=== PATIENT | female | born 1970 | race Caucasian/White ===

== ENCOUNTER 2019-05-22 15:48 | Emergency (ER) | payer OTHER ==
--- NOTE | 2019-05-22 15:50 | PDOC ---
History of Present Illness - General Chief Complaint: Revisit, Lab Variance Stated Complaint: HIGH POTASSIUM Time Seen by Provider: 05/22/19 15:50 Past History - Past Medical History Allergies/Adverse Reactions: Allergies Allergy/AdvReac Type Severity Reaction Status Date / Time Penicillins Allergy Verified 05/22/19 15:49 Discharge - Discharge Information Condition: Stable - Follow up/Referral - Patient Discharge Instructions - Post Discharge Activity
[2019-05-22 15:53] VITALS: BMI 27.4
--- NOTE | 2019-05-22 16:00 | PDOC ---
Attending Attestation - Resident Resident Name: Neftali Bruce - ED Attending Attestation I have performed the following: I have examined & evaluated the patient, The case was reviewed & discussed with the resident, I agree w/resident's findings & plan, Exceptions are as noted - HPI HPI: 05/23/19 08:33 Patient presents at the request of her siding mechanic, who performed routine labs this morning and noted a potassium of 7.0. The patient is asymptomatic. There's been no vomiting or diarrhea. She has no known kidney disease or prior electrolyte abnormalities - Physicial Exam PE: 05/23/19 08:33 Physical exam: Alert and oriented well-developed well-nourished no acute distress cheerful and cooperative Afebrile, vital signs normal including regular heart rate HEENT clear Neck supple without bruit mass or nodes Chest clear bilaterally CV S1 and S2 normal without murmur or gallop pulses full and symmetric no JVD or edema no bruits Abdomen benign Neurological intact including 2+ reflexes bilateral, symmetric Extremities no CCE Skin clear, no rash, adequate turgor and wet mucous membranes Impression: Hyperkalemia on routine blood work, no obvious reason for elevated potassium, possible homolysis original specimen Plan: Repeat potassium revealed a value of 4.0. Remaining labs were normal. Patient was reassured and instructed to follow-up with primary physician, or return to ER if any symptoms develop. Fully ambulatory and in no distress at discharge - Medical Decision Making 05/23/19 08:35 Assessment and plan as noted above
[2019-05-22 17:07] VITALS: BP 110/64; PULSE 87; TEMP 98.4
[2019-05-22 17:09] LABS: BASO % 0.6 % (0-2.0); EOS % 4.4 % (0-4.5); HEMATOCRIT 35.1 % (32.4-45.2); HEMOGLOBIN 11.9 GM/dl (10.7-15.3); LYMPH % 26.9 % (8-40); MCHC 33.9 g/dl (32.0-36.0); MEAN CELL VOLUME 97.2 fl (80-96); MEAN PLT VOLUME 10.5 fl (7.5-11.1); MONO % 5.4 % (3.8-10.2); NEUT % 62.7 % (42.8-82.8); PLATELET COUNT 170 K/MM3 (134-434); RBC 3.61 M/mm3 (3.60-5.2); RDW 13.2 % (11.6-15.6); WHITE BLOOD COUNT 7.4 K/mm3 (4.0-10.8)
[2019-05-22 17:23] LABS: ALBUMIN 3.8 g/dl (3.4-5.0); BILIRUBIN,TOTAL 0.5 mg/dl (0.2-1); CALCIUM 8.5 mg/dl (8.5-10); CREATININE 0.6 mg/dl (0.55-1.3); TOT PROT 6.1 g/dl (6.4-8.2)
[2019-05-22 17:24] LABS: MAGNESIUM 1.9 mg/dL (1.8-2.4); PHOSPHOROUS 3.3 mg/dl (2.5-4.9)
--- NOTE | 2019-05-22 17:38 | PDOC ---
History of Present Illness - General History Source: Patient Exam Limitations: No Limitations - History of Present Illness Initial Comments: HPI: 48 y/o female presenting to [facility] for elevated potassium noted on routine outpatient labs ordered by pts real estate assistant. Lab was drawn this morning. Pt was called and told her potassium was 7.0 and she should present to the ED. Pt has no active complaints. Review of Systems: In addition to that documented in the HPI above, the additional ROS was obtained : Constitutional: Denies fevers or chills ENMT: Denies sore throat CV: Denies chest pain Resp: Denies SOB GI: Denies vomiting or diarrhea : Denies dysuria, hematuria, or urinary frequency Physical Examination: Constitutional: Well-developed, well-nourished adult female in no acute distress or obvious discomfort. Found semi-fowlers on hospital bed. Answered all questions appropriately and completely. Speech was non-labored, non- pressured. Head: Normocephalic. No obvious external signs of trauma. Cardiovascular / Chest: Regular rate and regular rhythm. No murmur, rubs, clicks , or gallops. Peripheral pulses: radial pulses full. Respiratory: Breathing unlabored. Equal chest rise and fall. Clear to auscultation bilaterally. No stridor, no wheezing, no rhonchi. Gastrointestinal: abdomen is soft, non-tender, non-distended. Neuro: Alert and oriented x4. Moving all four extremities spontaneously. Skin: Warm, dry, and intact. Psych: Affect: appropriate. Mood: normal. MDM: *Reviewed vital signs, nursing notes, and prior visit documentation (if available). 48 y/o female presenting for elevated potassium on outpatient lab draw. No complaints on arrival. Repeat labs unremarkable for hyperkalemia. Mag and Phos also normal. Suspect likely hemolyzed specimen as pt is asymptomatic and denies h/o renal disease. Discussed laboratory results with pt. Answered all questions. Provided return precautions. Pt expressed verbal understanding and agreement with plan to discharge home with outpatient follow up. Provided copies of todays results. Neftali Bruce M.D., PGY2 Emergency Medicine Resident <Neftali Bruce - Last Filed: 05/22/19 18:53> <Russ Lutz - Last Filed: 05/23/19 08:32> - General Chief Complaint: Revisit, Lab Variance Stated Complaint: HIGH POTASSIUM Time Seen by Provider: 05/22/19 15:50 Past History - Past Medical History COPD: No Other medical history: OCD, ANOREXIA, DARRYL - Psycho Social/Smoking Cessation Hx Smoking History: Never smoked Hx Alcohol Use: No Drug/Substance Use Hx: No <Neftali Bruce - Last Filed: 05/22/19 18:53> <Russ Lutz - Last Filed: 05/23/19 08:32> - Past Medical History Allergies/Adverse Reactions: Allergies Allergy/AdvReac Type Severity Reaction Status Date / Time Penicillins Allergy Verified 05/22/19 15:49 Home Medications: Ambulatory Orders Clomipramine HCl [Anafranil] 0 mg PO DAILY 05/22/19 Levothyroxine Sodium [Synthroid] 0 mcg PO DAILY 05/22/19 Risperidone [Risperdal] 0 mg PO DAILY 05/22/19 Sertraline HCl [Zoloft] 0 mg PO DAILY 05/22/19 *Physical Exam - Vital Signs Last Vital Signs Temp Pulse Resp BP Pulse Ox 98.4 F 87 16 110/64 100 05/22/19 15:49 05/22/19 15:49 05/22/19 15:49 05/22/19 15:49 05/22/19 15:49 <Neftali Bruce - Last Filed: 05/22/19 18:53> - Vital Signs Last Vital Signs Temp Pulse Resp BP Pulse Ox 98.4 F 87 16 110/64 100 05/22/19 15:49 05/22/19 15:49 05/22/19 15:49 05/22/19 15:49 05/22/19 15:49 <Russ Lutz - Last Filed: 05/23/19 08:32> ED Treatment Course - LABORATORY CBC & Chemistry Diagram: 05/22/19 16:52 05/22/19 16:52 - ADDITIONAL ORDERS Additional order review: Laboratory Results 05/22/19 05/22/19 16:52 16:52 Sodium 132 L Potassium 4.0 Chloride 99 Carbon Dioxide 28 Anion Gap 5 L BUN 14.0 Creatinine 0.6 Est GFR (CKD-EPI)AfAm 125.80 Est GFR (CKD-EPI)NonAf 108.54 Random Glucose 100 Calcium 8.5 Phosphorus 3.3 Magnesium 1.9 Total Bilirubin 0.5 AST 18 ALT 20 Alkaline Phosphatase 66 Total Protein 6.1 L Albumin 3.8 05/22/19 16:52 RBC 3.61 MCV 97.2 H MCHC 33.9 RDW 13.2 MPV 10.5 Neutrophils % 62.7 Lymphocytes % 26.9 Monocytes % 5.4 Eosinophils % 4.4 Basophils % 0.6 <Neftali Bruce - Last Filed: 05/22/19 18:53> - LABORATORY CBC & Chemistry Diagram: 05/22/19 16:52 05/22/19 16:52 - ADDITIONAL ORDERS Additional order review: 05/22/19 16:52 RBC 3.61 MCV 97.2 H MCHC 33.9 RDW 13.2 MPV 10.5 Neutrophils % 62.7 Lymphocytes % 26.9 Monocytes % 5.4 Eosinophils % 4.4 Basophils % 0.6 <Russ Lutz - Last Filed: 05/23/19 08:32> Discharge - Discharge Information Problems reviewed: Yes - Admission No <Neftali Bruce - Last Filed: 05/22/19 18:53> <Russ Lutz - Last Filed: 05/23/19 08:32> - Discharge Information Clinical Impression/Diagnosis: Abnormal laboratory test Condition: Good Disposition: HOME - Patient Discharge Instructions Additional Instructions: Your potassium measurement was repeated and found to be 4.0 (which is normal). The previous results were likely from a hemolyzed specimen, which happens sometimes. Follow up with your doctor as previously scheduled. I have attached a copy of your lab work from todays visit. Take it to the appointment so your doctor can review them. Go to the nearest emergency department if your condition worsens or you feel like you need additional emergency evaluation. Print Language: BURKINAN - Post Discharge Activity Work/Back to School Note: Back to Work
== END 2019-05-22 17:55 | disposition home or self-care (01) ==
LOC: FER 15:48
DX: Z01.89 Encounter for other specified special examinations (principal); F42.9 Obsessive-compulsive disorder, unspecified; R63.0 Anorexia; E06.3 Autoimmune thyroiditis; Z88.0 Allergy status to penicillin
CPT/HCPCS: 36415; 80053; 83735; 84100; 85025; 99282-25